=== PATIENT | male | born 1935 | race Caucasian/White ===

== ENCOUNTER 2018-07-30 19:34 | Inpatient (IN) ==
[2018-07-30 20:09] LABS: Basophils % 0.1 % (0.0-0.8); Eosinophils % 0.1 % (0.00-10.9); Hematocrit 33.8 VOL% (42.0-52.0); Hemoglobin 11.1 GM/DL (14.0-18.0); Immature Granulocytes % 3.1 %; Immature Granulocytes Absolute 0.28 #; Lymphocytes # 0.2 10*3/uL (1.4-4.0); Lymphocytes % 2.1 % (21.2-54.2); Mean Corpuscular HGB Conc 32.8 GM/DL (32-36); Mean Corpuscular Hemoglobin 30 PG (27-34); Mean Corpuscular Volume 92.1 FL (87-102); Mean Platelet Volume 10.2 FL (9.6-12.0); Monocytes # 0.2 10*3/uL (0.11-0.8); Monocytes % 1.9 % (1.7-12.7); Neutrophils # 8.5 10*3/uL (1.4-7.4); Neutrophils % 92.7 % (38.7-73.9); Platelet Count 118 T/CUMM (130-400); Red Blood Count 3.67 MC/CUMM (3.8-5.5); Red Cell Distribution Width 13.6 % (9.3-17.3); White Blood Count 9.1 T/CUMM (4-12)
[2018-07-30 20:18] LABS: INR 1.2; PT Patient Result 12.7 SECS; Partial Thromboplastin Time 34.3 SECS (0-40)
[2018-07-30 20:20] LABS: Ammonia < 10 UMOL/L (11-32)
[2018-07-30 20:23] LABS: Alanine Aminotransferase 134 U/L (16-61); Alkaline Phosphatase 96 U/L (45-117); Aspartate Amino Transferase 118 U/L (0-37); Bilirubin,Indirect 0.6 MG/DL (0.0-1.0); Blood Urea Nitrogen 40 MG/DL (7-18); Calcium 8.3 MG/DL (8.5-10.1); Glucose 102 MG/DL (74-106); Osmolality,Calculated 275.4 MOS/KG (273-304); Potassium 3.9 MMOL/L (3.5-5.1); Sodium 133 MMOL/L (136-145)
[2018-07-30 20:25] LABS: Lactic Acid 0.8 MMOL/L (0.4-2.0)
[2018-07-30 20:35] LABS: Band Neutrophils 13 % (0-10); Lymphocytes 2 % (20-55); Myelocytes 2 %; Platelet Estimate Adequate; Segmented Neutrophils 82 % (50-85); Total Cells Counted 100
[2018-07-30 20:38] LABS: Apearance,Urine CLEAR (Clear); Bilirubin,Urine Negative (Negative); Blood, Urine Small mg/dL (Negative); Glucose,Urine (UA) Negative (Negative); Ketones,Urine Negative (Negative); Nitrite,Urine Negative (Negative); Protein,Urine 100 MG/DL; RBC,Urine 1 /HPF (0-4); Urine Color Amber (Yellow); Urine Specific Gravity 1.012 (1.001-1.035); Urine Urobilinogen < 2.0 EU/DL (0.2-1.0); WBC,Urine <1 /HPF (0-6)
[2018-07-30] MEDS ORDERED: MORPHINE 4 MG/1 ML VIAL IV STA (21:33)
[2018-07-30] MEDS ORDERED: ONDANSETRON 4 MG/2 ML VIAL IV STA (21:33)
[2018-07-30] MEDS ORDERED: FAMOTIDINE 20 MG/2 ML VIAL IV STA (21:33)
[2018-07-30] MEDS ORDERED: SODIUM CHLORIDE 0.9% 1,000 ML IV STA (21:34)
[2018-07-30] MEDS ORDERED: ACETAMINOPHEN 650 MG SUPP RECTAL STA (22:41)
[2018-07-30] MEDS ORDERED: ACETAMINOPHEN 325 MG SUPP RECTAL STA (22:41)
[2018-07-30] MEDS ORDERED: MEROPENEM 1,000 MG in SODIUM CHLORIDE 0.9% 100 ML IV STA (23:25)
[2018-07-30] MEDS ORDERED: DEXTROSE 50% 25 GM/50 ML SYRINGE IV ONE (23:31)
[2018-07-30] MEDS ORDERED: DEXTROSE 50% 25 GM/50 ML VIAL IV STA (23:37)
[2018-07-31] MEDS ORDERED: DEXTROSE 50% 25 GM/50 ML VIAL IV PRN (00:16)
[2018-07-31] MEDS ORDERED: ALBUTEROL 2.5 MG/3 ML NEB RESP TX PRN (00:16)
[2018-07-31] MEDS ORDERED: diphenhydrAMINE CAP 25 MG CAPSULE PO PRN (00:16)
[2018-07-31] MEDS ORDERED: ONDANSETRON 4 MG/2 ML VIAL IV PRN (00:16)
[2018-07-31] MEDS ORDERED: GLUCAGON 1 MG VIAL IM PRN (00:16)
[2018-07-31] MEDS ORDERED: MORPHINE 4 MG/1 ML VIAL IV PRN (00:16)
[2018-07-31] MEDS ORDERED: PROMETHAZINE 25 MG/1 ML VIAL IM PRN (00:16)
[2018-07-31] MEDS ORDERED: ACETAMINOPHEN 325 MG TABLET PO PRN (00:16)
[2018-07-31] MEDS ORDERED: SIMETHICONE CHEW 125 MG TABLET PO PRN (00:16)
[2018-07-31] MEDS: ALBUTEROL/IPRATROPIUM 3 ML NEB RESP TX SCH ×4 (01:00→19:20)
[2018-07-31 01:13] LABS: Albumin 2.7 G/DL (3.4-5.0); Bilirubin,Direct 2.88 MG/DL (0.0-0.20); Bilirubin,Indirect 0.5 MG/DL (0.0-1.0); Bilirubin,Total 3.4 MG/DL (0.2-1.0); Total Protein 6.3 G/DL (6.4-8.3)
[2018-07-31] MEDS ORDERED: MAGNESIUM SULF RIDER 2 GM in PREMIX 1 EACH IV PRN (01:49)
[2018-07-31] MEDS ORDERED: MAGNESIUM SULF RIDER 4 GM in PREMIX 1 EACH IV PRN (01:49)
[2018-07-31 01:51] LABS: Basophils % 0.1 % (0.0-0.8); Hemoglobin 10.6 GM/DL (14.0-18.0); Immature Granulocytes % 4.7 %; Immature Granulocytes Absolute 0.49 #; Lymphocytes # 0.2 10*3/uL (1.4-4.0); Mean Corpuscular HGB Conc 33.1 GM/DL (32-36); Mean Corpuscular Hemoglobin 31 PG (27-34); Mean Corpuscular Volume 92.5 FL (87-102); Mean Platelet Volume 10.3 FL (9.6-12.0); Monocytes # 0.4 10*3/uL (0.11-0.8); Monocytes % 3.4 % (1.7-12.7); Neutrophils # 9.4 10*3/uL (1.4-7.4); Neutrophils % 89.8 % (38.7-73.9); Platelet Count 115 T/CUMM (130-400); Red Blood Count 3.46 MC/CUMM (3.8-5.5); Red Cell Distribution Width 13.9 % (9.3-17.3); White Blood Count 10.5 T/CUMM (4-12)
[2018-07-31 01:54] LABS: Albumin 2.7 G/DL (3.4-5.0); Bilirubin,Total 3.3 MG/DL (0.2-1.0); Calcium 7.8 MG/DL (8.5-10.1); Osmolality,Calculated 281.8 MOS/KG (273-304); Potassium 3.5 MMOL/L (3.5-5.1); Total Protein 6.3 G/DL (6.4-8.3)
[2018-07-31] MEDS ORDERED: VANCOMYCIN INJ 1,750 MG in SODIUM CHLORIDE 0.9% 500 ML IV SCH (02:00)
[2018-07-31] MEDS: CYCLOBENZAPRINE 10 MG TABLET PO SCH ×2 (02:17→20:16)
[2018-07-31] MEDS: DEXTROSE 5% NACL 0.9% 1,000 ML IV SCH ×2 (02:17→20:19)
[2018-07-31] MEDS: methylPREDNISolone SOD SUC 40 MG/1 ML VIAL IV SCH ×2 (02:17→14:22)
[2018-07-31] MEDS: PIPERACILLIN/TAZOBACTAM 3,375 MG in SODIUM CHLORIDE 0.9% 100 ML IV SCH ×3 (02:18→18:30)
[2018-07-31 02:23] LABS: Band Neutrophils 9 % (0-10); Hypochromasia Slight; Lymphocytes 3 % (20-55); Metamyelocytes 2 %; Platelet Estimate Decreased; Segmented Neutrophils 84 % (50-85); Total Cells Counted 100
[2018-07-31] MEDS ORDERED: VANCOMYCIN INJ 1,250 MG in SODIUM CHLORIDE 0.9% 250 ML IV SCH (02:30)
[2018-07-31 03:13] LABS: Hepatitis A Ab IgM Quant 0.07 Index; Hepatitis A Ab IgM Result Negative (Negative); Hepatitis B Core IgM Quant 0.07 Index; Hepatitis B Core IgM Result Negative (Negative); Hepatitis B Surface Ag Quant < 0.10 Index; Hepatitis B Surface Ag Result Negative (Negative); Hepatitis C Virus Ab Quant 0.08 Index; Hepatitis C Virus Ab Result Negative (Negative)
[2018-07-31] MEDS: INSULIN REGULAR 100 UNIT/ML SUBCUT SCH ×3 (06:18→18:30)
[2018-07-31] MEDS: LEVOTHYROXINE 112 MCG TABLET PO SCH (06:18)
[2018-07-31] MEDS: PANTOPRAZOLE 40 MG VIAL IV SCH (08:20)
[2018-07-31] MEDS: FUROSEMIDE 40 MG TABLET PO SCH (08:21)
[2018-07-31] MEDS: ESCITALOPRAM 10 MG TABLET PO SCH (08:21)
[2018-07-31] MEDS: MULTIVITAMIN (BEROCCA) TABLET PO SCH (08:21)
[2018-07-31] MEDS: ASPIRIN EC 81 MG TABLET PO SCH (08:21)
[2018-07-31] MEDS: ATORVASTATIN 20 MG TABLET PO SCH (08:21)
[2018-07-31] MEDS ORDERED: LABETALOL 100 MG TABLET PO SCH ×2 (09:00→21:00)
[2018-07-31] MEDS: TAMSULOSIN 0.4 MG CAPSULE PO SCH (20:16)
[2018-07-31] MEDS: LABETALOL 100 MG TABLET PO SCH (20:17)
[2018-08-01] MEDS: INSULIN REGULAR 100 UNIT/ML SUBCUT SCH ×4 (00:40→18:11)
[2018-08-01] MEDS: ALBUTEROL/IPRATROPIUM 3 ML NEB RESP TX SCH ×4 (00:54→19:40)
[2018-08-01] MEDS: methylPREDNISolone SOD SUC 40 MG/1 ML VIAL IV SCH ×2 (02:51→14:36)
[2018-08-01 03:27] LABS: Basophils % 0.2 % (0.0-0.8); Hematocrit 31.8 VOL% (42.0-52.0); Hemoglobin 10.4 GM/DL (14.0-18.0); Immature Granulocytes % 1.1 %; Immature Granulocytes Absolute 0.07 #; Lymphocytes # 0.3 10*3/uL (1.4-4.0); Mean Corpuscular HGB Conc 32.7 GM/DL (32-36); Mean Corpuscular Hemoglobin 30 PG (27-34); Mean Platelet Volume 10.9 FL (9.6-12.0); Monocytes # 0.3 10*3/uL (0.11-0.8); Monocytes % 4.9 % (1.7-12.7); Neutrophils # 5.9 10*3/uL (1.4-7.4); Neutrophils % 89.8 % (38.7-73.9); Platelet Count 108 T/CUMM (130-400); Red Blood Count 3.42 MC/CUMM (3.8-5.5); Red Cell Distribution Width 13.9 % (9.3-17.3); White Blood Count 6.5 T/CUMM (4-12)
[2018-08-01 03:36] LABS: INR 1.1; PT Patient Result 11.5 SECS
[2018-08-01 03:47] LABS: Albumin 2.4 G/DL (3.4-5.0); Bilirubin,Total 2.6 MG/DL (0.2-1.0); Calcium 8.2 MG/DL (8.5-10.1); Osmolality,Calculated 296.8 MOS/KG (273-304); Total Protein 6.3 G/DL (6.4-8.3)
[2018-08-01 04:17] LABS: Band Neutrophils 6 % (0-10); Hypochromasia 1+; Lymphocytes 6 % (20-55); Segmented Neutrophils 81 % (50-85); Total Cells Counted 100
[2018-08-01] MEDS: PIPERACILLIN/TAZOBACTAM 3,375 MG in SODIUM CHLORIDE 0.9% 100 ML IV SCH ×3 (05:08→23:17)
[2018-08-01] MEDS: LEVOTHYROXINE 112 MCG TABLET PO SCH (05:49)
[2018-08-01] MEDS: PANTOPRAZOLE 40 MG VIAL IV SCH (10:38)
[2018-08-01] MEDS: ESCITALOPRAM 10 MG TABLET PO SCH (11:45)
[2018-08-01] MEDS: ATORVASTATIN 20 MG TABLET PO SCH (11:45)
[2018-08-01] MEDS: FUROSEMIDE 40 MG TABLET PO SCH (11:45)
[2018-08-01] MEDS: MULTIVITAMIN (BEROCCA) TABLET PO SCH (11:45)
[2018-08-01] MEDS: TAMSULOSIN 0.4 MG CAPSULE PO SCH ×2 (11:45→20:18)
[2018-08-01] MEDS: ASPIRIN EC 81 MG TABLET PO SCH (11:45)
[2018-08-01] MEDS: FINASTERIDE 5 MG TABLET PO SCH (11:46)
[2018-08-01] MEDS: LABETALOL 100 MG TABLET PO SCH ×2 (11:47→20:19)
[2018-08-01] MEDS ORDERED: GLUCAGON 1 MG VIAL IM PRN (15:43)
[2018-08-01] MEDS ORDERED: DEXTROSE 50% 25 GM/50 ML VIAL IV PRN (15:43)
[2018-08-01] MEDS: DEXTROSE 5% NACL 0.9% 1,000 ML IV SCH (20:18)
[2018-08-01] MEDS: CYCLOBENZAPRINE 10 MG TABLET PO SCH (20:18)
[2018-08-02] MEDS: ALBUTEROL/IPRATROPIUM 3 ML NEB RESP TX SCH ×4 (00:43→19:30)
[2018-08-02] MEDS: methylPREDNISolone SOD SUC 40 MG/1 ML VIAL IV SCH ×2 (01:43→14:10)
[2018-08-02 04:17] LABS: Basophils % 0.1 % (0.0-0.8); Eosinophils % 0.1 % (0.00-10.9); Hematocrit 29.9 VOL% (42.0-52.0); Hemoglobin 10.1 GM/DL (14.0-18.0); Immature Granulocytes % 3.5 %; Lymphocytes # 0.6 10*3/uL (1.4-4.0); Lymphocytes % 6.6 % (21.2-54.2); Mean Corpuscular HGB Conc 33.8 GM/DL (32-36); Mean Corpuscular Hemoglobin 31 PG (27-34); Mean Corpuscular Volume 90.3 FL (87-102); Mean Platelet Volume 10.9 FL (9.6-12.0); Monocytes # 0.6 10*3/uL (0.11-0.8); Monocytes % 6.9 % (1.7-12.7); Neutrophils # 7.1 10*3/uL (1.4-7.4); Neutrophils % 82.8 % (38.7-73.9); Platelet Count 117 T/CUMM (130-400); Red Blood Count 3.31 MC/CUMM (3.8-5.5); Red Cell Distribution Width 14.2 % (9.3-17.3); White Blood Count 8.5 T/CUMM (4-12)
[2018-08-02 04:55] LABS: Albumin 2.3 G/DL (3.4-5.0); Bilirubin,Total 1.9 MG/DL (0.2-1.0); Calcium 8.3 MG/DL (8.5-10.1); Potassium 4.2 MMOL/L (3.5-5.1)
[2018-08-02] MEDS: LEVOTHYROXINE 112 MCG TABLET PO SCH (05:48)
[2018-08-02] MEDS: INSULIN REGULAR 100 UNIT/ML SUBCUT SCH ×4 (06:01→17:34)
[2018-08-02] MEDS: PIPERACILLIN/TAZOBACTAM 3,375 MG in SODIUM CHLORIDE 0.9% 100 ML IV SCH ×3 (06:20→22:14)
[2018-08-02] MEDS ORDERED: ONDANSETRON 4 MG/2 ML VIAL ONE (10:00)
[2018-08-02] MEDS ORDERED: SUCCINYLCHOLINE 200 MG/10 ML VIAL ONE (10:00)
[2018-08-02] MEDS ORDERED: PROPOFOL 200 MG/20 ML VIAL IV ONE (10:00)
[2018-08-02] MEDS ORDERED: LIDOCAINE 100 MG/5 ML SYRINGE ONE (10:00)
[2018-08-02] MEDS ORDERED: ROCURONIUM 100 MG/10 ML VIAL IV ONE (10:00)
[2018-08-02] MEDS ORDERED: fentaNYL 100 MCG/2 ML VIAL ONE (11:13)
[2018-08-02] MEDS ORDERED: INDOMETHACIN SUPP 50 MG SUPP RECTAL ONE (11:35)
[2018-08-02] MEDS ORDERED: ePHEDrine 50 MG/ML AMP ONE (12:01)
[2018-08-02] MEDS ORDERED: SEVOFLURANE 1 UNIT/15 MINUTE INH ONE (13:20)
[2018-08-02] MEDS: ESCITALOPRAM 10 MG TABLET PO SCH (14:13)
[2018-08-02] MEDS: FUROSEMIDE 40 MG TABLET PO SCH (14:13)
[2018-08-02] MEDS: ATORVASTATIN 20 MG TABLET PO SCH (14:13)
[2018-08-02] MEDS: LABETALOL 100 MG TABLET PO SCH ×2 (14:13→22:13)
[2018-08-02] MEDS: ASPIRIN EC 81 MG TABLET PO SCH (14:13)
[2018-08-02] MEDS: MULTIVITAMIN (BEROCCA) TABLET PO SCH (14:13)
[2018-08-02] MEDS: TAMSULOSIN 0.4 MG CAPSULE PO SCH ×2 (14:13→22:13)
[2018-08-02] MEDS: FINASTERIDE 5 MG TABLET PO SCH (14:14)
[2018-08-02] MEDS: PANTOPRAZOLE 40 MG VIAL IV SCH (14:14)
[2018-08-02] MEDS: URSODIOL 300 MG CAPSULE PO SCH ×2 (15:42→22:13)
[2018-08-02] MEDS: DEXTROSE 5% NACL 0.9% 1,000 ML IV SCH ×2 (16:00→18:45)
[2018-08-02] MEDS: CYCLOBENZAPRINE 10 MG TABLET PO SCH (22:13)
[2018-08-03] MEDS: INSULIN REGULAR 100 UNIT/ML SUBCUT SCH ×3 (00:12→12:16)
[2018-08-03] MEDS: ALBUTEROL/IPRATROPIUM 3 ML NEB RESP TX SCH ×2 (01:20→07:09)
[2018-08-03] MEDS: methylPREDNISolone SOD SUC 40 MG/1 ML VIAL IV SCH (03:46)
[2018-08-03 04:18] LABS: Basophils % 0.2 % (0.0-0.8); Eosinophils % 0.1 % (0.00-10.9); Hematocrit 30.8 VOL% (42.0-52.0); Hemoglobin 10.2 GM/DL (14.0-18.0); Immature Granulocytes % 6.7 %; Immature Granulocytes Absolute 0.55 #; Lymphocytes # 0.7 10*3/uL (1.4-4.0); Lymphocytes % 9.1 % (21.2-54.2); Mean Corpuscular HGB Conc 33.1 GM/DL (32-36); Mean Corpuscular Hemoglobin 30 PG (27-34); Mean Corpuscular Volume 91.1 FL (87-102); Mean Platelet Volume 10.9 FL (9.6-12.0); Monocytes # 0.6 10*3/uL (0.11-0.8); Monocytes % 7.9 % (1.7-12.7); Neutrophils # 6.2 10*3/uL (1.4-7.4); Platelet Count 119 T/CUMM (130-400); Red Blood Count 3.38 MC/CUMM (3.8-5.5); Red Cell Distribution Width 14.4 % (9.3-17.3); White Blood Count 8.2 T/CUMM (4-12)
[2018-08-03 04:52] LABS: Albumin 2.3 G/DL (3.4-5.0); Bilirubin,Total 2.3 MG/DL (0.2-1.0); Calcium 8.2 MG/DL (8.5-10.1); Osmolality,Calculated 302.1 MOS/KG (273-304); Potassium 4.2 MMOL/L (3.5-5.1); Total Protein 5.8 G/DL (6.4-8.3)
[2018-08-03 04:55] LABS: Band Neutrophils 5 % (0-10); Lymphocytes 9 % (20-55); Nucleated Red Blood Cells 2 (0-5); Platelet Estimate Decreased; Segmented Neutrophils 80 % (50-85); Total Cells Counted 100
[2018-08-03] MEDS: PIPERACILLIN/TAZOBACTAM 3,375 MG in SODIUM CHLORIDE 0.9% 100 ML IV SCH (06:09)
[2018-08-03] MEDS: LEVOTHYROXINE 112 MCG TABLET PO SCH (06:09)
[2018-08-03] MEDS: FUROSEMIDE 40 MG TABLET PO SCH (08:22)
[2018-08-03] MEDS: ASPIRIN EC 81 MG TABLET PO SCH (08:23)
[2018-08-03] MEDS: ESCITALOPRAM 10 MG TABLET PO SCH (08:23)
[2018-08-03] MEDS: ATORVASTATIN 20 MG TABLET PO SCH (08:23)
[2018-08-03] MEDS: FINASTERIDE 5 MG TABLET PO SCH (08:23)
[2018-08-03] MEDS: URSODIOL 300 MG CAPSULE PO SCH (08:23)
[2018-08-03] MEDS: MULTIVITAMIN (BEROCCA) TABLET PO SCH (08:24)
[2018-08-03] MEDS: TAMSULOSIN 0.4 MG CAPSULE PO SCH (08:24)
[2018-08-03] MEDS: LABETALOL 100 MG TABLET PO SCH (08:26)
[2018-08-03] MEDS ORDERED: PANTOPRAZOLE 40 MG TABLET PO SCH (09:00)
[2018-08-03 12:05] VITALS: BP 147/63
[2018-08-03] MEDS: DEXTROSE 5% NACL 0.9% 1,000 ML IV SCH (13:07)
== END 2018-08-03 13:20 | disposition home or self-care (01) | DRG 445 ==
LOC: N.ED 19:34 → SUATTDRO 07-31 00:16 → N.EDINP 07-31 00:16 → N.CC 07-31 00:50
PROVIDERS: ADMIT Internal Medicine Cardiovascular Disease; ATTEND Internal Medicine